=== PATIENT | female | born 1935 | race Caucasian/White ===

== ENCOUNTER 2018-05-19 14:02 | Outpatient (CLI) | payer MEDICARE, OTHER | END 2018-05-19 14:03 | disposition home or self-care (01) | LOC: BICMAMMO 14:02 | PROVIDERS: ATTEND Internal Medicine | DX: Z12.31 Encounter for screening mammogram for malignant neoplasm of breast (principal) | CPT/HCPCS: 77063; 77067 ==

== ENCOUNTER 2019-02-02 15:19 | Outpatient (CLI) | payer MEDICARE, OTHER ==
--- NOTE | 2019-02-02 16:23 | BD ---
Exam: DEXA Bone Density 02/02/19 HISTORY: Postmenopausal screening for osteoporosis. FINDINGS: Lumbar Spine: BMD (g/cm2) T-Score: L1 1.193 1.8 L2 1.157 1.2 L3 1.391 2.8 L4 1.363 2.7 L1-L4 1.283 2.1 Femoral Neck: 0.566 -2.6 Total Femur: 0.755 -1.5 Impression: Osteoporosis. POS: OFF
== END 2019-02-02 15:20 | disposition home or self-care (01) ==
LOC: BICMAMMO 15:19
PROVIDERS: ATTEND Internal Medicine Rheumatology
DX: M81.0 Age-related osteoporosis without current pathological fracture (principal)
CPT/HCPCS: 77080

== ENCOUNTER 2019-02-22 13:31 | Emergency (ER) | payer MEDICARE, OTHER ==
[2019-02-22] MEDS ORDERED: Ondansetron ODT 4 MG TAB ONE (13:54)
--- NOTE | 2019-02-22 14:41 | CT ---
CT head noncontrast HISTORY: Fall. Head injury. FINDINGS: There is no evidence of acute intracranial hemorrhage or infarct. The ventricles appear nor mal in size, shape and position. Mild chronic ischemic small vessel disease throughout the periventricular white matter. No mass effect or shift of midline structures. Calcification within the arterial structures of the brain base. IMPRESSION: No acute intracranial abnormalities are demonstrated. Atherosclerosis.
--- NOTE | 2019-02-22 14:41 | CT ---
Exam: CT of the cervical spine without contrast HISTORY: Fell and hit head with neck pain. COMPARISON: None TECHNIQUE: Multiple contiguous axial images were obtained in a CT of the cervical spine without contr ast. Sagittal and coronal reformats were performed. FINDINGS: The vertebral bodies demonstrate normal height and alignment without fracture or subluxati on. No prevertebral soft tissue swelling is seen. The intervertebral discs are narrowed throughout the cervical spine with small to moderate osteophytes. The posterior facets are well aligned. Normal alignment of the skull base with the cervical spine is seen. The lung apices are unremarkable. The thyroid gland is nodular in appearance. IMPRESSION: No evidence of acute osseous abnormality of the cervical spine.
== END 2019-02-22 15:40 | disposition home or self-care (01) ==
LOC: ERS 13:31
DX: S00.83XA Contusion of other part of head, initial encounter (principal); E78.5 Hyperlipidemia, unspecified; M19.90 Unspecified osteoarthritis, unspecified site; Z79.82 Long term (current) use of aspirin; Z79.891 Long term (current) use of opiate analgesic; W01.0XXA Fall on same level from slipping, tripping and stumbling without subsequent striking against object, initial encounter
CPT/HCPCS: 70450; 72125; Q0162

== ENCOUNTER 2019-06-15 12:31 | Outpatient (CLI) | payer MEDICARE, OTHER ==
--- NOTE | 2019-06-15 13:36 | MMO ---
Bilateral MAMMO Bilat Screen [facility]. CLINICAL HISTORY: Patient is 84 years old and is seen for screening. The patient has no family history of breast cancer. The patient has no personal history of cancer. The patient has a history of right Stereotatic Biopsy in July, - Benign. VIEWS: The views performed were: bilateral craniocaudal with tomosynthesis and bilateral mediolateral oblique with tomosynthesis. FILMS COMPARED: The present examination has been compared to prior imaging studies performed at [facility] on 02/09/2015, 03/05/2016, 04/22/2017 and 05/19/2018. MAMMOGRAM FINDINGS: There are scattered fibroglandular densities. Finding 1: There are stable benign appearing calcifications seen in both breasts. There are also vascular calcifications. Finding 2: There are stable benign appearing densities seen in both breasts. There are no suspicious masses, suspicious calcifications, or new areas of architectural distortion. IMPRESSION: THERE IS NO MAMMOGRAPHIC EVIDENCE OF MALIGNANCY. A ROUTINE FOLLOW-UP MAMMOGRAM IN 1 YEAR IS RECOMMENDED. THE RESULTS OF THIS EXAM WERE SENT TO THE PATIENT. ACR BI-RADS Category 2 - Benign finding MAMMOGRAPHY NOTE: 1. A negative mammogram report should not delay a biopsy if a dominant of clinically suspicious mass is present. 2. Approximately 10% to 15% of breast cancers are not detected by mammography. 3. Adenosis and dense breasts may obscure an underlying neoplasm. Reported by: YOVANY PEREZ MD Electonically Signed: [id number]
== END 2019-06-15 12:32 | disposition home or self-care (01) ==
LOC: BICMAMMO 12:31
PROVIDERS: ATTEND Internal Medicine
DX: Z12.31 Encounter for screening mammogram for malignant neoplasm of breast (principal)
CPT/HCPCS: 77063; 77067

== ENCOUNTER 2021-12-28 14:10 | Outpatient (CLI) | payer MEDICARE, OTHER | END 2021-12-28 14:11 | disposition home or self-care (01) | LOC: BICMAMMO 14:10 | PROVIDERS: ATTEND Internal Medicine | DX: Z12.31 Encounter for screening mammogram for malignant neoplasm of breast (principal); M81.0 Age-related osteoporosis without current pathological fracture; M85.851 Other specified disorders of bone density and structure, right thigh; Z96.642 Presence of left artificial hip joint; Z91.89 Other specified personal risk factors, not elsewhere classified | CPT/HCPCS: 77063; 77067; 77080 ==

== ENCOUNTER 2022-04-30 07:38 | Outpatient (CLI) | payer MEDICARE, OTHER ==
[2022-04-30] MEDS ORDERED: Iopamidol 370 76% 100 ML VIAL ONE (08:00)
== END 2022-04-30 07:39 | disposition home or self-care (01) ==
LOC: CT 07:38
PROVIDERS: ATTEND Otolaryngology Otolaryngic Allergy
DX: H93.A1 Pulsatile tinnitus, right ear (principal); E04.2 Nontoxic multinodular goiter
CPT/HCPCS: 70496; 70498; 82565; Q9967